=== PATIENT | male | born 1950 | race Two or more races ===

== ENCOUNTER 2023-08-10 16:37 | Observation (INO) | payer MEDICARE, OTHER ==
[2023-08-10 16:41] LABS: Glucose,Whole Blood 30 mg/dL (70-110)
[2023-08-10] MEDS ORDERED: DEXTROSE 50% SYRINGE 50 ML IVP STA ×2 (16:41→17:55)
--- NOTE | 2023-08-10 17:06 | ED ---
General Adult HPI - General Chief complaint: Recheck/Abnormal Lab/Rx Stated complaint: hypoglycemic Time Seen by Provider: 08/10/23 16:48 Source: patient, family, EMS, RN notes reviewed Mode of arrival: EMS Limitations: no limitations - History of Present Illness Initial comments: Patient is a pleasant 73-year-old male presenting to the emergency department for hypoglycemia. Patient was not feeling well. Patient had high blood sugar and took 60 units of insulin. Patient was about to eat. Patient started becoming confused. Blood sugar in the emergency department was in the 30s. Patient given D50 and feeling much better at this time. Patient is currently symptom-free except for feeling hungry. - Related Data Home Medications Medication Instructions Recorded Confirmed Bitter Melon Supplement (Unknown 1 dose PO DAILY 08/10/23 08/10/23 Strength) Black Villarreal Supplement 1 dose PO DAILY 08/10/23 08/10/23 Bromelain 2500 Mg 2,500 mg PO DAILY 08/10/23 08/10/23 Cinnamon Bark [Cinnamon] 500 mg PO DAILY 08/10/23 08/10/23 Cranberry Fruit Extract [Cranberry] 500 mg PO DAILY 08/10/23 08/10/23 Dapagliflozin Propanediol [Farxiga] 10 mg PO DAILY 08/10/23 08/10/23 Insulin Aspart (Niacinamide) 48 units SQ AC-TID 08/10/23 08/10/23 [Fiasp 100 Unit/ml Flextouch Pen] Insulin Glargine,Hum.rec.anlog 45 units SQ BID 08/10/23 08/10/23 [Lantus Solostar Pen] Keratin 500mg 500 mg PO DAILY 08/10/23 08/10/23 Latanoprost [Latanoprost 0.005%] 1 drop BOTH EYES HS 08/10/23 08/10/23 Losartan Potassium 100 mg PO DAILY 08/10/23 08/10/23 Timolol 0.5% Ophth Gel Forming 1 drop BOTH EYES DAILY 08/10/23 08/10/23 [Timoptic-Xe 0.5% Gel Form] Ubidecarenone [Coenzyme Q10] 200 mg PO DAILY 08/10/23 08/10/23 Verapamil HCl [Verapamil ER] 240 mg PO DAILY 08/10/23 08/10/23 allopurinoL [Zyloprim] 200 mg PO DAILY 08/10/23 08/10/23 calcitrioL [Calcitriol] 0.5 mcg PO MOTUWETHFR 08/10/23 08/10/23 hydrALAZINE HCL [Apresoline] 50 mg PO BID 08/10/23 08/10/23 Allergies Allergy/AdvReac Type Severity Reaction Status Date / Time No Known Allergies Allergy Verified 08/10/23 17:25 Review of Systems ROS Statement: Those systems with pertinent positive or pertinent negative responses have been documented in the HPI. ROS Other: All systems not noted in ROS Statement are negative. Constitutional: Denies: fever Eyes: Denies: eye pain ENT: Denies: ear pain Respiratory: Denies: cough Cardiovascular: Denies: chest pain Endocrine: Denies: fatigue Gastrointestinal: Denies: abdominal pain Genitourinary: Denies: dysuria Neurological: Reports: as per HPI Past Medical History Past Medical History: Diabetes Mellitus, Hyperlipidemia, Hypertension Additional Past Medical History / Comment(s): Stag 3A kidney failure Additional Past Surgical History / Comment(s): arm surgery (60 yrs ago), knee surgery (30 yrs ago) cataract surgery (3 yrs ago) Past Psychological History: No Psychological Hx Reported Smoking Status: Never smoker Past Alcohol Use History: None Reported Past Drug Use History: Marijuana General Exam Limitations: no limitations General appearance: alert, in no apparent distress Head exam: Present: atraumatic, normocephalic Eye exam: Present: normal appearance, PERRL ENT exam: Present: normal oropharynx Neck exam: Present: normal inspection. Absent: tenderness, meningismus Respiratory exam: Present: normal lung sounds bilaterally Cardiovascular Exam: Present: regular rate, normal rhythm GI/Abdominal exam: Present: soft. Absent: tenderness Extremities exam: Present: normal inspection Neurological exam: Present: alert, oriented X3, CN II-XII intact. Absent: motor sensory deficit Expanded Cranial nerves: EOM's Intact: Normal Motor strength exam: RUE: 5, LUE: 5, RLE: 5, LLE: 5 Eye Response: (4) open spontaneously Motor Response: (6) obeys commands Verbal Response: (5) oriented Psychiatric exam: Present: normal affect, normal mood Skin exam: Present: normal color Course Vital Signs 08/10/23 08/10/23 08/10/23 16:42 17:54 19:15 Pulse Rate 59 L 48 L 55 L Respiratory 22 18 22 Rate Blood Pressure 179/76 148/73 189/101 O2 Sat by Pulse 94 L 98 98 Oximetry Medical Decision Making - Medical Decision Making Was pt. sent in by a medical professional or institution (, [facility], CLAIMS ADJUSTER SUPERVISOR, urgent care, hospital, or half-way...) When possible be specific @ -No Did you speak to anyone other than the patient for history (EMS, parent, family, police, friend...)? What history was obtained from this source @ -Family is present and helps provide history including missed a meal and dosing of insulin Did you review nursing and triage notes (agree or disagree)? Why? @ -I reviewed and agree with nursing and triage notes Were old charts reviewed (outside hosp., previous admission, EMS record, old EKG, old radiological studies, urgent care reports/EKG's, half-way records)? Report findings @ -No old charts were reviewed Differential Diagnosis (chest pain, altered mental status, abdominal pain women, abdominal pain men, vaginal bleeding, weakness, fever, dyspnea, syncope, headache, dizziness, GI bleed, back pain, seizure, CVA, palpatations, mental health, musculoskeletal)? @ -Differential Altered Mental Status: Hypoglycemia, DKA, hypercapnia, ETOH, overdose, CO poisoning, trauma, myxedema coma, HTN encephalopathy, infection, encephalitis, psychosis, intercranial hemorrhage, hepatic encephalopathy, meningitis, CVA, this is not meant to be an all-inclusive list EKG interpreted by me (3pts min.). @ -As above X-rays interpreted by me (1pt min.). @ -None done CT interpreted by me (1pt min.). @ -None done U/S interpreted by me (1pt. min.). @ -None done What testing was considered but not performed or refused? (CT, X-rays, U/S, labs)? Why? @ -None What meds were considered but not given or refused? Why? @ -None Did you discuss the management of the patient with other professionals (professionals i.e. [facility] Garcia, CLAIMS ADJUSTER SUPERVISOR, lab, RT, psych nurse, social media marketing manager, sales trainer, teacher, real estate officer, case resource manager)? Give summary @ -Dr. Jo paged for admission of this patient. Was smoking cessation discussed for >3mins.? @ -No Was critical care preformed (if so, how long)? @ -No Were there social determinants of health that impacted care today? How? (Homelessness, low income, unemployed, alcoholism, drug addiction, transportation, low edu. Level, literacy, decrease access to med. care, retirement, rehab)? @ -No Was there de-escalation of care discussed even if they declined (Discuss DNR or withdrawal of care, Hospice)? DNR status @ -No What co-morbidities impacted this encounter? (DM, HTN, Smoking, COPD, CAD, Cancer, CVA, ARF, Chemo, Hep., AIDS, mental health diagnosis, sleep apnea, morbid obesity)? @ -None Was patient admitted / discharged? Hospital course, mention meds given and route, prescriptions, significant lab abnormalities, going to OR and other pertinent info. @ -Secondary to refractory hypoglycemia despite food and D50 2 patient remains in the 50s and slightly drowsy. Patient and family updated. Patient will be admitted. Admission orders written. Undiagnosed new problem with uncertain prognosis? @ -No Drug Therapy requiring intensive monitoring for toxicity (Heparin, Nitro, Insulin, Cardizem)? @ -No Were any procedures done? @ -No Diagnosis/symptom? @ -Hypoglycemia Acute, or Chronic, or Acute on Chronic? @ -Acute Uncomplicated (without systemic symptoms) or Complicated (systemic symptoms)? @ -Complicated with mental status change Side effects of treatment? @ -No Exacerbation, Progression, or Severe Exacerbation? @ -No Poses a threat to life or bodily function? How? (Chest pain, [place], [place], pneumonia, PE, COPD, DKA, ARF, appy, cholecystitis, CVA, Diverticulitis, Homicidal, Suicidal, threat to staff... and all critical care pts) @ -No - Lab Data Lab Results 08/10/23 08/10/23 08/10/23 Range/Units 16:39 17:10 17:44 POC Glucose (mg/dL) 30 L 56 L 30 L (70-110) mg/dL POC Glu Or First Assist Registered Nurse ID Janeth Ramirez T Chandler, Andrew Chandler, Andrew 08/10/23 08/10/23 08/10/23 Range/Units 18:21 18:42 19:05 POC Glucose (mg/dL) 59 L 61 L 56 L (70-110) mg/dL POC Glu Or First Assist Registered Nurse ID Bebeto Raymond Matthew Robinson, Brandon 08/10/23 Range/Units 20:16 POC Glucose (mg/dL) 53 L (70-110) mg/dL POC Glu Or First Assist Registered Nurse ID Voss Lilli Disposition Clinical Impression: Hypoglycemia Disposition: ADMITTED IP TO THIS HOSP Is patient prescribed a controlled substance at d/c from ED?: No Referrals: Kulwant Jo MD [Primary Care Provider] - 1-2 days Time of Disposition: 20:38
[2023-08-10 17:12] LABS: Glucose,Whole Blood 56 mg/dL (70-110)
[2023-08-10 17:50] LABS: Glucose,Whole Blood 30 mg/dL (70-110)
[2023-08-10 18:22] LABS: Glucose,Whole Blood 59 mg/dL (70-110)
[2023-08-10 18:44] LABS: Glucose,Whole Blood 61 mg/dL (70-110)
[2023-08-10 19:10] LABS: Glucose,Whole Blood 56 mg/dL (70-110)
[2023-08-10 20:19] LABS: Glucose,Whole Blood 53 mg/dL (70-110)
[2023-08-10] MEDS ORDERED: DEXTROSE 5%-0.45% NACL 1,000 ML IV ONE (20:25)
[2023-08-10] MEDS ORDERED: NALOXONE 0.4 MG/ML 1 ML VIAL IV PRN (20:40)
[2023-08-10] MEDS ORDERED: LATANOPROST 0.005% OPHTH DROPS 2.5 ML BTL BOTH EYES SCH (21:00)
[2023-08-10 21:50] LABS: Glucose,Whole Blood 74 mg/dL (70-110)
[2023-08-10] MEDS: hydrALAZINE HCL 50 MG TAB PO SCH (21:50)
[2023-08-10 21:59] LABS: Basophils % (A) 0 %; Eosinophils # (A) 0.1 k/uL (0-0.7); Eosinophils % (A) 2 %; HCT 39.6 % (39.0-53.0); Lymphocytes # (A) 1.2 k/uL (1.0-4.8); Lymphocytes % (A) 18 %; MCHC 32.7 g/dL (31.0-37.0); MCV 94.8 fL (80.0-100.0); Monocytes # (A) 0.4 k/uL (0-1.0); Monocytes % (A) 6 %; Neutrophils # (A) 4.7 k/uL (1.3-7.7); Neutrophils % (A) 72 %; Platelet Count 184 k/uL (150-450); RBC 4.18 m/uL (4.30-5.90); RDW 13.8 % (11.5-15.5); WBC 6.5 k/uL (3.8-10.6)
[2023-08-10 22:13] LABS: ALT 14 U/L (4-49); AST 19 U/L (17-59); African American GFR (CKD) 49 (>60 ml/min/1.73 sqM); Albumin 3.6 g/dL (3.5-5.0); Alkaline Phosphatase 73 U/L (38-126); Anion Gap 11 mmol/L; Blood Urea Nitrogen 36 mg/dL (9-20); Calcium 8.8 mg/dL (8.4-10.2); Carbon Dioxide 19 mmol/L (22-30); Chloride 107 mmol/L (98-107); Glucose 272 mg/dL (74-99); Non-African American GFR(CKD) 42 (>60 ml/min/1.73 sqM); Sodium 137 mmol/L (137-145); Total Bilirubin 0.6 mg/dL (0.2-1.3); Total Protein 6.3 g/dL (6.3-8.2)
[2023-08-10 23:26] LABS: Glucose,Whole Blood 99 mg/dL (70-110)
[2023-08-11 01:44] LABS: Glucose,Whole Blood 155 mg/dL (70-110)
[2023-08-11 03:21] LABS: Glucose,Whole Blood 140 mg/dL (70-110)
[2023-08-11 05:22] LABS: Glucose,Whole Blood 146 mg/dL (70-110)
[2023-08-11] MEDS: hydrALAZINE HCL 50 MG TAB PO SCH (07:49)
--- NOTE | 2023-08-11 08:11 | P.HPIM ---
History of Present Illness H&P Date: 08/11/23 Chief Complaint: Refractory hypoglycemia The patient 73-year-old white male with known history of hypertension and hyperlipidemia and insulin dependent diabetes who had hypoglycemia. He states he is eating summary salvage and his sugar dropped he felt dizzy and new he is having significant hypoglycemia but was unable to eat properly. He was taking the emergency room and after D50 Was Still Unable to Get Normal Glycemic Control. He Is Observed and Admitted fo hypoglycemia. The patient's blood sugars now stable he is tolerating diet. Relating properly without any di zziness. 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 History of Any Multi-Drug Resistant Organisms: None Reported Additional Past Surgical History / Comment(s): arm surgery (60 yrs ago), knee surgery (30 yrs ago) cataract surgery (3 yrs ago) Past Anesthesia/Blood Transfusion Reactions: No Reported Reaction Past Psychological History: No Psychological Hx Reported Smoking Status: Never smoker Past Alcohol Use History: None Reported Additional Past Alcohol Use History / Comment(s): quit alcohol 28 years ago Past Drug Use History: Marijuana Additional Drug Use History / Comment(s): [facility] in winter for feet pain. - Past Family History Mother History Unknown: Yes Medications and Allergies Home Medications Medication Instructions Recorded Confirmed Type Bitter Melon Supplement (Unknown 1 dose PO DAILY 08/10/23 08/10/23 History Strength) Black Villarreal Supplement 1 dose PO DAILY 08/10/23 08/10/23 History Bromelain 2500 Mg 2,500 mg PO DAILY 08/10/23 08/10/23 History Cinnamon Bark [Cinnamon] 500 mg PO DAILY 08/10/23 08/10/23 History Cranberry Fruit Extract [Cranberry] 500 mg PO DAILY 08/10/23 08/10/23 History Dapagliflozin Propanediol [Farxiga] 10 mg PO DAILY 08/10/23 08/10/23 History Insulin Aspart (Niacinamide) 48 units SQ AC-TID 08/10/23 08/10/23 History [Fiasp 100 Unit/ml Flextouch Pen] Insulin Glargine,Hum.rec.anlog 45 units SQ BID 08/10/23 08/10/23 History [Lantus Solostar Pen] Keratin 500mg 500 mg PO DAILY 08/10/23 08/10/23 History Latanoprost [Latanoprost 0.005%] 1 drop BOTH EYES HS 08/10/23 08/10/23 History Losartan Potassium 100 mg PO DAILY 08/10/23 08/10/23 History Timolol 0.5% Ophth Gel Forming 1 drop BOTH EYES DAILY 08/10/23 08/10/23 History [Timoptic-Xe 0.5% Gel Form] Ubidecarenone [Coenzyme Q10] 200 mg PO DAILY 08/10/23 08/10/23 History Verapamil HCl [Verapamil ER] 240 mg PO DAILY 08/10/23 08/10/23 History allopurinoL [Zyloprim] 200 mg PO DAILY 08/10/23 08/10/23 History calcitrioL [Calcitriol] 0.5 mcg PO MOTUWETHFR 08/10/23 08/10/23 History hydrALAZINE HCL [Apresoline] 50 mg PO BID 08/10/23 08/10/23 History Allergies Allergy/AdvReac Type Severity Reaction Status Date / Time No Known Allergies Allergy Verified 08/10/23 17:25 Physical Exam Vitals: Vital Signs Temp Pulse Pulse Resp BP BP Pulse Ox 08/11/23 06:04 168/88 08/11/23 00:30 98.7 F 65 16 190/85 98 08/10/23 23:48 98.6 F 08/10/23 21:49 66 20 136/93 08/10/23 19:15 55 L 22 189/101 98 08/10/23 17:54 48 L 18 148/73 98 08/10/23 16:42 59 L 22 179/76 94 L Intake and Output 08/10/23 08/11/23 08/11/23 22:59 06:59 14:59 Intake Total 525 Output Total 800 Balance -275 Intake: Intake, IV Titration 525 Amount Dextrose 5%-0.45% NaCl 1, 525 000 ml @ 75 mls/hr IV . [id number] ONE Rx#:[id number] Output: Urine 800 Other: Weight 185.519 kg 185.519 kg - Constitutional General appearance: morbidly obese - EENT Eyes: EOMI - Neck Neck: no lymphadenopathy - Respiratory Respiratory: bilateral: diminished - Cardiovascular Rhythm: irregularly irregular Heart sounds: normal: S1, S2 Abnormal Heart Sounds: no S3 Gallop - Gastrointestinal General gastrointestinal: soft, no tenderness - Integumentary Integumentary: no cellulitis Results CBC & Chem 7: 08/10/23 21:48 08/10/23 21:48 Labs: Abnormal Lab Results - Last 24 Hours (Table) 08/10/23 08/10/23 08/10/23 Range/Units 16:39 17:10 17:44 RBC (4.30-5.90) m/uL Carbon Dioxide (22-30) mmol/L BUN (9-20) mg/dL Creatinine (0.66-1.25) mg/dL Glucose (74-99) mg/dL POC Glucose (mg/dL) 30 L 56 L 30 L (70-110) mg/dL 08/10/23 08/10/23 08/10/23 Range/Units 18:21 18:42 19:05 RBC (4.30-5.90) m/uL Carbon Dioxide (22-30) mmol/L BUN (9-20) mg/dL Creatinine (0.66-1.25) mg/dL Glucose (74-99) mg/dL POC Glucose (mg/dL) 59 L 61 L 56 L (70-110) mg/dL 08/10/23 08/10/23 08/10/23 Range/Units 20:16 21:48 21:48 RBC 4.18 L (4.30-5.90) m/uL Carbon Dioxide 19 L (22-30) mmol/L BUN 36 H (9-20) mg/dL Creatinine 1.61 H (0.66-1.25) mg/dL Glucose 272 H (74-99) mg/dL POC Glucose (mg/dL) 53 L (70-110) mg/dL 08/11/23 08/11/23 08/11/23 Range/Units 01:39 03:19 05:20 RBC (4.30-5.90) m/uL Carbon Dioxide (22-30) mmol/L BUN (9-20) mg/dL Creatinine (0.66-1.25) mg/dL Glucose (74-99) mg/dL POC Glucose (mg/dL) 155 H 140 H 146 H (70-110) mg/dL Thrombosis Risk Factor Assmnt - Choose All That Apply Each Factor Represents 1 point: Swollen legs (current) Other Risk Factors: Yes Each Risk Factor Represents 2 Points: Age 61-74 years Thrombosis Risk Factor Assessment Total Risk Factor Score: 3 Thrombosis Risk Factor Assessment Level: Moderate Risk Assessment and Plan (1) Hypoglycemia Current Visit: Yes Status: Acute Code(s): E16.2 - HYPOGLYCEMIA, UNSPECIFIED SNOMED Code(s): 869604443 Plan: We will go ahead and watch blood sugar for this morning. If the patient does tolerate lunch, we will DC in stable condition with home dose which has of his insulin been stable. Reconcile medications otherwise. Time with Patient: Greater than 30
[2023-08-11] MEDS ORDERED: DAPAGLIFLOZIN PROPANEDIOL 10 MG TABLET PO SCH (09:00)
[2023-08-11] MEDS ORDERED: allopurinoL 100 MG TAB PO SCH (09:00)
[2023-08-11] MEDS ORDERED: VERAPAMIL SR 240 MG TABLET.ER PO SCH (09:00)
[2023-08-11] MEDS ORDERED: TIMOLOL 0.5% OPHTH DROPS 5 ML BTL BOTH EYES SCH (09:00)
[2023-08-11] MEDS ORDERED: LOSARTAN 50 MG TAB PO SCH (09:00)
[2023-08-11 09:27] LABS: Glucose,Whole Blood 298 mg/dL (70-110)
[2023-08-11 09:30] VITALS: BP 197/68; PULSE 44; RESP 18; TEMP 97.3
[2023-08-11 11:26] LABS: Basophils # (A) 0.04 X 10*3/uL (0.00-0.10); Basophils % (A) 0.5 %; Eosinophils # (A) 0.21 X 10*3/uL (0.04-0.35); Eosinophils % (A) 2.9 %; HCT 38.6 % (39.6-50.0); Lymphocytes # (A) 1.65 X 10*3/uL (0.90-5.00); Lymphocytes % (A) 22.5 %; MCH 29.3 pg (27.0-32.0); MCHC 31.1 d/dL (32.0-37.0); MCV 94.4 FL (80.0-97.0); Monocytes # (A) 0.81 X 10*3/uL (0.20-1.00); NRBC Per 100 WBC 0 X 10*3/uL (0.00-0.01); Neutrophils # (A) 4.61 X 10*3/uL (1.80-7.70); Neutrophils % (A) 62.8 %; Platelet Count 219 X 10*3/uL (140-440); RBC 4.09 X 10*6/uL (4.40-5.60); WBC 7.34 X 10*3/uL (4.50-10.00)
[2023-08-11 11:41] LABS: BUN/Creat Ratio 17.89 Ratio (12.00-20.00); Blood Urea Nitrogen 32.2 mg/dL (9.0-27.0); Calcium 9.1 mg/dL (8.7-10.3); Chloride 105 mmol/L (96-109); Glucose 177 mg/dL (70-110); Potassium 5.7 mmol/L (3.5-5.5); Sodium 138 mmol/L (135-145)
== END 2023-08-11 13:38 | disposition home or self-care (01) ==
LOC: EC 16:37 → 4SSUR 20:41
PROVIDERS: ADMIT Family Medicine; ATTEND Family Medicine
DX: E11.649 Type 2 diabetes mellitus with hypoglycemia without coma (principal); E78.5 Hyperlipidemia, unspecified; I12.9 Hypertensive chronic kidney disease with stage 1 through stage 4 chronic kidney disease, or unspecified chronic kidney disease; N18.31 Chronic kidney disease, stage 3a; E11.22 Type 2 diabetes mellitus with diabetic chronic kidney disease; E66.01 Morbid (severe) obesity due to excess calories; Z68.43 Body mass index [BMI] 50.0-59.9, adult; Z79.84 Long term (current) use of oral hypoglycemic drugs; Z79.4 Long term (current) use of insulin; Z79.899 Other long term (current) drug therapy
CPT/HCPCS: 96366 ×2; 96376; 96365; 99285; 36415; 80053; 80048; 85025 ×2; G0378 ×2